=== PATIENT | female | born 1990 | race Caucasian/White ===

== ENCOUNTER 2018-03-11 04:15 | Inpatient (IN) | payer BC ==
[~2018-03-11 04:15] MED LIST: DEXTROSE 5%-LACTATED RINGERS 1,000 ML IV SCH
[2018-03-11 04:57] VITALS: BMI 37.2
[2018-03-11 05:57] LABS: BASO % 0.2 % (0-2.0); EOS % 0.5 % (0-4.5); HEMATOCRIT 36.9 % (32.4-45.2); HEMOGLOBIN 12.6 GM/dL (10.7-15.3); LYMPH % 19.4 % (8-40); MCH 28.8 pg (25.7-33.7); MCHC 34.1 g/dl (32.0-36.0); MEAN CELL VOLUME 84.5 fl (80-96); MEAN PLT VOLUME 10.9 fl (7.5-11.1); MONO % 5.6 % (3.8-10.2); NEUT % 74.3 % (42.8-82.8); PLATELET COUNT 160 K/MM3 (134-434); RBC 4.36 M/mm3 (3.60-5.2); RDW 13.9 % (11.6-15.6); WHITE BLOOD COUNT 13.2 K/mm3 (4.0-10.0)
[2018-03-11] MEDS ORDERED: AMPICILLIN - 2 GM in SODIUM CHLORIDE 100 ML IVPB ONE (06:00)
[2018-03-11] MEDS ORDERED: AMPICILLIN SODIUM 2 GM VIAL ONE (06:04)
[2018-03-11 06:18] LABS: INR 0.96 (0.82-1.09); PROTHROMBIN TIME (PATIENT) 10.9 SEC (9.7-13.0)
[2018-03-11 06:20] LABS: ACTIVATED PTT 24.6 SECONDS (26.9-34.4)
[2018-03-11] MEDS ORDERED: BUTORPHANOL TARTRATE 1 MG/ML VIAL ONE ×2 (06:41)
[2018-03-11] MEDS ORDERED: PROMETHAZINE HCL 25 MG/1 ML VIAL ONE (06:41)
[2018-03-11] MEDS ORDERED: SODIUM CHLORIDE 100 ML IVPB ONE (06:42)
[2018-03-11 06:43] LABS: ALBUMIN 2.5 g/dl (3.4-5.0); ALK PHOS 119 U/L (45-117); ANION GAP 10 (8-16); BILIRUBIN,TOTAL 0.2 mg/dL (0.2-1.0); BLOOD UREA NITROGEN 10 mg/dL (7-18); CALCIUM 8.2 mg/dL (8.5-10.1); CHLORIDE 107 mmol/L (98-107); CO2 24 mmol/L (21-32); CREATININE 0.5 mg/dL (0.55-1.02); GLUCOSE,RANDOM 104 mg/dL (74-106); POTASSIUM 4.3 mmol/L (3.5-5.1); SGOT/AST 13 U/L (15-37); SGPT/ALT 13 U/L (12-78); SODIUM 141 mmol/L (136-145); TOT PROT 6.2 g/dl (6.4-8.2)
[2018-03-11] MEDS ORDERED: PROMETHAZINE HCL 25 MG/1 ML VIAL IVPUSH ONE (06:49)
[2018-03-11] MEDS ORDERED: BUTORPHANOL TARTRATE 1 MG/ML VIAL IVPUSH ONE (06:49)
[2018-03-11] MEDS ORDERED: DEXTROSE 5%-LACTATED RINGERS 1,000 ML IV SCH (07:00)
[2018-03-11] MEDS ORDERED: OXYTOCIN 20 UNITS in 0.9% NS 20 UNIT/1,000 ML INFUS.BAG IV ONE (08:44)
[2018-03-11] MEDS ORDERED: BISACODYL 10 MG SUPP.RECT RC PRN (09:07)
[2018-03-11] MEDS ORDERED: WITCH HAZEL 50% (TUCKS) 40 PAD/JAR PAD TP PRN (09:07)
[2018-03-11] MEDS ORDERED: BENZOCAINE 20% 57 GM BOTTLE TP PRN (09:07)
[2018-03-11] MEDS ORDERED: BENZOCAINE 28 GM HEMORRHOIDAL OINTMENT TP PRN (09:07)
[2018-03-11] MEDS ORDERED: METHYLERGONOVINE MALEATE 0.2 MG/1 ML AMP IM PRN (09:07)
--- NOTE | 2018-03-11 09:07 | PN ---
Delivery - Delivery Type of Anesthesia: None Episiotomy/Laceration: None EBL (cc): 250 ( of living male infantover intact perineum score 88. condition of both mother and are stable.) Delivery, Single - [place] Feeding Plan Initial Plan: Exclusive throughout hospitalization
--- NOTE | 2018-03-11 09:13 | HP ---
Past Medical History - Admission Chief Complaint: onset of labor spontaneous rupture of membranes History of Present Illness: 27 y/o female presented to the labor and delivery c/o of onset of labor with spontaneous rupture of the amniotic mebranes. her antepartum course has been unremarkable. she has a h/o normal spontaneous vaginal delivery, uncomplicated. History Source: Patient Limitations to Obtaining History: No Limitations - Past Medical History FIRST BEATER: No: Alzheimer's, CVA, Dementia, Migraine, Multiple Sclerosis, Peripheral Neuropathy, Parkinson's, Seizure, Syncope, TIA, Vertigo, Other Cardiovascular: No: AFIB, Aneurysm, Aortic Insufficiency, Aortic Stenosis, CAD, CHF, Deep Vein Thrombosis, HTN, Hyperlipdemia, NM, Mitral Insufficiency, Mitral Stenosis, Murmur, Pulmonary Hypertension, Other Pulmonary: No: Asthma, Bronchitis, Cancer, COPD, O2 Dependent, Pneumonia, Previously Intubated, Pulmonary Embolus, Pulmonary Fibrosis, Sleep Apnea, Other Gastrointestinal: No: Ascites, Cancer, Constipation, Crohn's Disease, Diverticulitis, Diverticulosis, Esophageal Varices, Gastritis, GERD, GI Bleed, Hemorrhoids, Hiatal Hernia, Inflamatory Bowel Disease, Irritable Bowel Disease, Pancreatitis, Peptic Ulcer Disease, Ulcerative Colitis, Other Hepatobiliary: No: Cirrhosis, Cholelithiasis, Cholecystitis, Choledocholithiasis , Hepatitis A, Hepatitis B, Hepatitis C, Other Renal/: No: Renal Failure, Renal Inusuff, BPH, Cancer, Hematuria, Hemodialysis , Neurogenic Bladder, Renal Calculi, UTI, Other Reproductive: No: Ectopic , Endometriosis, Fibroids, PID, Polycystic Ovary Syndrome, Postmenopausal, Other ...: 4 ...Para: 1 ...Term: 1 ...: 0 ...Spon : 2 ...Induced : 0 ...Multiple Gestation: 0 ...LMP: 06/26/17 ... Weeks Gestation by Dates: 36.6 ...EDC by Dates: 04/02/18 Heme/Onc: No: Anemia, B12 Deficiency, Bleeding Disorder, Cancer, Current Chemotherapy, Current Radiation Therapy, Hemochromatosis, Hypercoaguable State, Myeloproliferative Synd, Sickle Cell Disease, Sickle Cell Trait, Thrombocytopenia, Other Infectious Disease: No: AIDS, C-Diff, Herpes Zoster, HIV, MRSA, STD's, Tuberculosis, VREF, Other Psych: No: Addictions, Anxiety, Bipolar, Depression, Panic, Psychosis, Schizophrenia, Other Musculoskeletal: No: Bursitis, Chronic low back pain, Hemiparesis, Hemiplegia, Osteoarthritis, Paraplegia, Other Rheumatology: No: Fibromyalgia, Gout, Lupus, Rheumatoid Arthritis, Sarcoidosis, Vasculitis, Other ENT: No: Allergic Rhinitis, Sinusitis, Other Endocrine: No: [place]'s Disease, Omar's Disease, Diabetes Insipidus, Diabetes Mellitus, Hyperparathyroidism, Hyperthyroidism, Hypothyroidism, Osteopenia, SIADH, Other Dermatology: No: Basal Cell, Cellulitis, Eczema, Melanoma, Psoriasis, Squamous Cell, 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 - Past Surgical History Past Surgical History: Yes: None Hx Myomectomy: No Hx Transabdominal Cerclage: No - Smoking History Smoking history: Never smoked Have you smoked in the past 12 months: No If you are a former smoker, when did you quit?: 08/2014 - Alcohol/Substance Use Hx Alcohol Use: No - Social History History of Recent Travel: No Home Medications - Allergies Allergies/Adverse Reactions: Allergies Allergy/AdvReac Type Severity Reaction Status Date / Time No Known Allergies Allergy Verified 06/17/15 18:33 - Home Medications Home Medications: Ambulatory Orders Vit/Iron Fumarate/FA [ Tablet] 1 tab PO DAILY 06/17/15 Family Disease History - Family Disease History Family History: Unremarkable Review of Systems - Review of Systems Constitutional: denies: No Symptoms, Chills, Diaphoresis, Fever, Lethargy, Loss of Appetite, Malaise, Night Sweats, Unintentional Wgt. Loss, Weakness, Other Eyes: denies: No Symptoms, Blind Spots, Blurred Vision, Double Vision, Eye Pain , Floaters, Photophobia, Recent Change in Vision, Other HENT: denies: No Symptoms, Difficult Swallowing, Ear Discharge, Ear Pain, Epistaxis, Gingival Bleeding, Hearing Loss, Mouth Swelling, Nasal Congestion, Ocular Prosthesis, Throat Pain, Toothache, Ringing in Ears, Other Neck: denies: No Symptoms, Decreased ROM, Lumps, Pain on Movement, Stiffness, Swollen Glands, Tenderness, Other Respiratory: denies: No Symptoms, Cough, Exercise Intolerance, Hemoptysis, Orthopnea, PND, Snoring, SOB, SOB on Exertion, Wheezing, Other Genitourinary: denies: No Symptoms, Burning, Discharge, Dysuria, Flank Pain, Frequency, Hematuria, Incontinence, Lesions, Menses, Pain, Testicular Mass, Testicular Pain, Testicular Swelling, Urgency, Vaginal Bleeding, Other Breasts: denies: No Symptoms Reported, See HPI, Breast Implants, Discharge from Nipple, Lumps, Pain, Skin Changes, Other Musculoskeletal: denies: No Symptoms, Back Pain, Crepitus, Decreased ROM, Extremity Pain, Joint Pain, Joint Swelling, Muscle Pain, Muscle Cramps, Muscle Weakness, Other Integumentary: denies: No Symptoms, Blister, Bruising, Change in Color, Eczema, Erythema, Incision, Lesions, Lump, Pallor, Pruritis, Rash, Wound, Other Neurological: denies: No Symptoms, Change in LOC, Change in Speech, Confusion, Dizziness, Headache, Incoordination, Numbness, Parasthesia, Pre-Existing Deficit , Seizure, Syncope, Tremors, Unsteady Gait, Weakness, Other Endocrine: denies: No Symptoms, Excessive Sweating, Flushing, Increased Hunger, Increased Thirst, Intolerance to Cold, Intolerance to Heat, Unexplained Weight Gain, Unexplained Weight Loss, Other Hematology/Lymphatic: denies: No Symptoms, Easily Bruised, Excessive Bleeding, Swollen Glands, Other Psychiatric: denies: No Symptoms, Altered Sleep Pattern, Anxiety, Depression, Hallucinations, Panic, Paranoia, Suicidal, Other Physical Exam - Maternity Vital Signs: Vital Signs Temperature 98.2 F 03/11/18 08:00 Pulse Rate 94 H 03/11/18 08:00 Respiratory Rate 20 03/11/18 08:00 Blood Pressure 136/83 03/11/18 08:00 O2 Sat by Pulse Oximetry (%) Constitutional: Yes: Well Nourished, No Distress, Calm Eyes: Yes: WNL, Conjunctiva Clear HENT: Yes: WNL, Atraumatic, Normocephalic Neck: Yes: WNL, Supple, Trachea Midline Cardiovascular: Yes: WNL, Regular Rate and Rhythm Lungs: Clear to auscultation Breast(s): Yes: WNL - Abdominal Exam/OB Number of Fetuses: Single Presentation: Vertex Contractions: Yes Regularity: Regular Intensity: Moderate Monitor Mode: External Heart Rate (range): 140bpm Heart Rate Location: [facility] Category: I Accelerations: Uniform Decelerations: None - Vaginal Exam/OB Vaginal Bleediing: Yes, Light Speculum Exam: No Dilatation (cm): 5cm Effacement (%): 90% Amniotic Membrane Status: Ruptured Amniotic Fluid: Yes: Clear Presentation: Vertex/Position Station: -1 - Physical Exam Musculoskeletal: Yes: WNL Extremities: Yes: WNL Edema: No Integumentary: Yes: WNL Deep Tendon Reflex Grade: Normal +2 ...Motor Strength: WNL Psychiatric: Yes: WNL - Labs Lab Results: CBC, BMP 03/11/18 05:40 03/11/18 05:40 Assessment/Plan iup at 36 weeks in labor assist with l.d pain management as needed by the patient
[2018-03-11] MEDS ORDERED: OXYTOCIN 20 UNITS in 0.9% NS 20 UNIT/1,000 ML INFUS.BAG IV SCH (09:15)
[2018-03-11] MEDS ORDERED: AMPICILLIN - 1 GM in SODIUM CHLORIDE 100 ML IVPB SCH (10:00)
[2018-03-11] MEDS: IBUPROFEN 600 MG TABLET (FP) PO PRN ×2 (13:04→20:41)
[2018-03-11] MEDS: ACETAMINOPHEN 325 MG TABLET (FP) PO PRN ×2 (13:05→20:43)
[2018-03-11 13:51] LABS: URINE APPEARANCE SLCLOUDY; URINE BILIRUBIN NEGATIVE (<2.0 mg/dL); URINE COLOR YELLOW; URINE GLUCOSE (UA) 3+ (NEGATIVE); URINE KETONE 1+ (NEGATIVE); URINE LEUK ESTERASE NEGATIVE (NEGATIVE); URINE NITRITE NEGATIVE (NEGATIVE); URINE UROBILINOGEN NEGATIVE mg/dL (0.2-1.0)
[2018-03-11 13:53] LABS: URINE PROTEIN 1+ (NEGATIVE)
[2018-03-11 13:54] LABS: EPI CELLS RARE /HPF (FEW); URINE MUCUS FEW
[2018-03-12 07:45] LABS: BASO % 0.3 % (0-2.0); EOS % 0.3 % (0-4.5); HEMATOCRIT 31.3 % (32.4-45.2); HEMOGLOBIN 10.5 GM/dL (10.7-15.3); LYMPH % 18.5 % (8-40); MCH 28.6 pg (25.7-33.7); MCHC 33.7 g/dl (32.0-36.0); MEAN CELL VOLUME 84.7 fl (80-96); MEAN PLT VOLUME 10.3 fl (7.5-11.1); MONO % 4.5 % (3.8-10.2); NEUT % 76.4 % (42.8-82.8); PLATELET COUNT 154 K/MM3 (134-434); RBC 3.69 M/mm3 (3.60-5.2); RDW 14.3 % (11.6-15.6); WHITE BLOOD COUNT 13.7 K/mm3 (4.0-10.0)
[2018-03-12] MEDS: ONDANSETRON 4 MG TABLET PO PRN ×3 (09:00→21:26)
--- NOTE | 2018-03-12 09:34 | PN ---
Post Note - Post Date of Delivery: 03/11/18 Post Day: 1 Vital Signs: Vital Signs - 24 hr 03/11/18 03/11/18 03/11/18 09:45 10:39 14:00 Temperature 98.2 F 98.2 F 98.2 F Pulse Rate 78 82 97 H Respiratory 20 20 20 Rate Blood Pressure 116/69 116/62 112/51 O2 Sat by Pulse 100 Oximetry (%) 03/11/18 03/11/18 03/12/18 17:59 22:00 02:00 Temperature 98.4 F 98.1 F 97.9 F Pulse Rate 104 H 100 H 90 Respiratory 20 18 18 Rate Blood Pressure 112/51 117/75 124/68 O2 Sat by Pulse Oximetry (%) 03/12/18 06:00 Temperature 98.5 F Pulse Rate 97 H Respiratory 18 Rate Blood Pressure 126/71 O2 Sat by Pulse Oximetry (%) Labs: Laboratory Results - last 24 hr 03/11/18 03/12/18 10:10 07:15 WBC 13.7 H RBC 3.69 Hgb 10.5 L D Hct 31.3 L D MCV 84.7 MCH 28.6 MCHC 33.7 RDW 14.3 Plt Count 154 MPV 10.3 Neutrophils % 76.4 Lymphocytes % 18.5 Monocytes % 4.5 Eosinophils % 0.3 Basophils % 0.3 Urine Color Yellow Urine Appearance Slcloudy Urine pH 5.0 Ur Specific [place] 1.032 Urine Protein 1+ H Urine Glucose (UA) 3+ H Urine Ketones 1+ H Urine Blood 3+ H Urine Nitrite Negative Urine Bilirubin Negative Urine Urobilinogen Negative Ur Leukocyte Esterase Negative Urine WBC (Auto) 5 Urine RBC (Auto) 761 Ur Epithelial Cells Rare Urine Mucus Few - Subjective Subjective: Other (Nausea and vomiting) - Objective Afebrile: Yes Breast: Not engorged Abdomen: Soft, Non-tender Uterus: Fundus firm Vagina: Scant lochia Extremities: Non-tender - Assessment/Plan (1) (normal spontaneous vaginal delivery) Assessment: S/P Normal , Other (nausea and vomiting) Plan: Routine Care, Other (Zofran PRN)
[2018-03-12] MEDS ORDERED: DIPHTH,PERTUSS(ACELL),TET 0.5 ML DISP.SYRIN IM ONE (10:00)
[2018-03-12 14:12] LABS: HBsAG SCREEN Negative (Negative)
[2018-03-12] MEDS ORDERED: SENNOSIDES/DOCUSATE COMBO (SENNA PLUS) TABLET (UD) PO PRN (22:00)
--- NOTE | 2018-03-13 10:17 | PN ---
Post Progress Note - Subjective Subjective: Pt seen/evaluated. Feeling nauseated. States she is unable to tolerate meals. Has emesis after each meal. Ate breakfast this a.m., no emesis yet but feels as though she may regurgitate food. Denies CP/SOB/F/C/DEL CID. Had BM yesterday, voiding. Breast feeding. Type of Delivery: Vital Signs: Vital Signs Temperature 98.7 F 03/12/18 21:13 Pulse Rate 84 03/12/18 21:13 Respiratory Rate 20 03/12/18 21:13 Blood Pressure 127/72 03/12/18 21:13 O2 Sat by Pulse Oximetry (%) 100 03/11/18 09:45 Breast Exam: Yes: Soft Uterus: Yes: Fundus Firm, Fundus below umbilicus Abdomen/GI: Yes: Abdomen soft. No: Abdominal Distention, Tender, Tolerating PO Lochia: Yes: Rubra Lochia, amount: Small Extremities: Yes: Calves non-tender Activity: Ambulating - Labs Labs: CBC WBC 13.7 K/mm3 (4.0-10.0) H 03/12/18 07:15 RBC 3.69 M/mm3 (3.60-5.2) 03/12/18 07:15 Hgb 10.5 GM/dL (10.7-15.3) L D 03/12/18 07:15 Hct 31.3 % (32.4-45.2) L D 03/12/18 07:15 MCV 84.7 fl (80-96) 03/12/18 07:15 MCH 28.6 pg (25.7-33.7) 03/12/18 07:15 MCHC 33.7 g/dl (32.0-36.0) 03/12/18 07:15 RDW 14.3 % (11.6-15.6) 03/12/18 07:15 Plt Count 154 K/MM3 (134-434) 03/12/18 07:15 MPV 10.3 fl (7.5-11.1) 03/12/18 07:15 Neutrophils % 76.4 % (42.8-82.8) 03/12/18 07:15 Lymphocytes % 18.5 % (8-40) 03/12/18 07:15 Monocytes % 4.5 % (3.8-10.2) 03/12/18 07:15 Eosinophils % 0.3 % (0-4.5) 03/12/18 07:15 Basophils % 0.3 % (0-2.0) 03/12/18 07:15 Problem List - Problems (1) (normal spontaneous vaginal delivery) Code(s): O80 - ENCOUNTER FOR FULL-TERM UNCOMPLICATED DELIVERY (2) Nausea & vomiting Code(s): R11.2 - NAUSEA WITH VOMITING, UNSPECIFIED Assessment/Plan 27 y/o PPD#2 s/p normal with nausea/vomiting will check labs if able to tolerate some PO and labs stable (r/o acute process such as cholecystitis etc) to consider discharge home later
[2018-03-13 10:43] LABS: BASO % 0.4 % (0-2.0); EOS % 0.5 % (0-4.5); HEMATOCRIT 33.6 % (32.4-45.2); HEMOGLOBIN 11.2 GM/dL (10.7-15.3); LYMPH % 23.1 % (8-40); MCHC 33.3 g/dl (32.0-36.0); MEAN CELL VOLUME 84.2 fl (80-96); MEAN PLT VOLUME 9.8 fl (7.5-11.1); PLATELET COUNT 211 K/MM3 (134-434); RBC 3.99 M/mm3 (3.60-5.2); RDW 14.4 % (11.6-15.6); WHITE BLOOD COUNT 10.6 K/mm3 (4.0-10.0)
[2018-03-13 11:09] LABS: ALBUMIN 2.3 g/dl (3.4-5.0); ALK PHOS 90 U/L (45-117); ANION GAP 7 (8-16); BILIRUBIN,TOTAL 0.3 mg/dL (0.2-1.0); BLOOD UREA NITROGEN 6 mg/dL (7-18); CALCIUM 8.5 mg/dL (8.5-10.1); CHLORIDE 105 mmol/L (98-107); CO2 29 mmol/L (21-32); CREATININE 0.7 mg/dL (0.55-1.02); GLUCOSE,RANDOM 75 mg/dL (74-106); POTASSIUM 3.9 mmol/L (3.5-5.1); SGOT/AST 13 U/L (15-37); SGPT/ALT 13 U/L (12-78); SODIUM 141 mmol/L (136-145); TOT PROT 5.7 g/dl (6.4-8.2)
[2018-03-13] MEDS ORDERED: diphenhydrAMINE HCL 25 MG CAPSULE (FP) PO PRN (18:09)
[2018-03-13] MEDS ORDERED: MAG HYDROX/AL HYDROX/SIMETH 30 ML UNIT-DOSE CUP PO PRN (18:09)
--- NOTE | 2018-03-13 18:10 | CON.GI ---
Consult Consult Specialty:: GI Referred by:: Dr Byrd Reason for Consultation:: nausea and vomiting after delivery - History of Present Illness History of Present Illness: 27 y/o female had recurrent episodes of nausea and vomiting asociated with mild epigastric pain after delivery . She was given Ibuprofen. She is breast feeding. She denies constipation, diarrhea, me;pipo and rectal bleeding. - Past Medical History DIRECTOR SPEECH LANGUAGE: No: Alzheimer's, CVA, Dementia, Migraine, Multiple Sclerosis, Peripheral Neuropathy, Parkinson's, Seizure, Syncope, TIA, Vertigo, Other Cardio/Vascular: No: AFIB, Aneurysm, Aortic Insufficiency, Aortic Stenosis, CAD , CHF, Deep Vein Thrombosis, HTN, Hyperlipdemia, IA, Mitral Insufficiency, Mitral Stenosis, Murmur, Pulmonary Hypertension, Other Pulmonary: No: Asthma, Bronchitis, Cancer, COPD, O2 Dependent, Pneumonia, Previously Intubated, Pulmonary Embolus, Pulmonary Fibrosis, Sleep Apnea, Other Gastrointestinal: No: Ascites, Cancer, Constipation, Crohn's Disease, Diverticulitis, Diverticulosis, Esophageal Varices, Gastritis, GERD, GI Bleed, Hemorrhoids, Hiatal Hernia, Inflamatory Bowel Disease, Irritable Bowel Disease, Pancreatitis, Peptic Ulcer Disease, Ulcerative Colitis, Other Hepatobiliary: No: Cirrhosis, Cholelithiasis, Cholecystitis, Choledocholithiasis , Hepatitis A, Hepatitis B, Hepatitis C, Other Renal/: No: Renal Failure, Renal Inusuff, BPH, Cancer, Hematuria, Hemodialysis , Neurogenic Bladder, Renal Calculi, UTI, Other Infectious Disease: No: AIDS, C-Diff, Herpes Zoster, HIV, MRSA, STD's, Tuberculosis, VREF, Other Psych: No: Addictions, Anxiety, Bipolar, Depression, Panic, Psychosis, Schizophrenia, Other Musculoskeletal: No: Bursitis, Chronic low back pain, Hemiparesis, Hemiplegia, Osteoarthritis, Paraplegia, Other Rheumatology: No: Fibromyalgia, Gout, Lupus, Rheumatoid Arthritis, Sarcoidosis, Vasculitis, Other ENT: No: Allergic Rhinitis, Sinusitis, Other Endocrine: No: Josh's Disease, Omar's Disease, Diabetes Insipidus, Diabetes Mellitus, Hyperparathyroidism, Hyperthyroidism, Hypothyroidism, Osteopenia, SIADH, Other Dermatology: No: Basal Cell, Cellulitis, Eczema, Melanoma, Psoriasis, Squamous Cell, 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 - Past Surgical History Past Surgical History: Yes: None - Alcohol/Substance Use Hx Alcohol Use: No - Smoking History Smoking history: Never smoked Have you smoked in the past 12 months: No If you are a former smoker, when did you quit?: 08/2014 - Social History History of Recent Travel: No Home Medications - Allergies Allergies/Adverse Reactions: Allergies Allergy/AdvReac Type Severity Reaction Status Date / Time No Known Allergies Allergy Verified 06/17/15 18:33 - Home Medications Home Medications: Ambulatory Orders Vit/Iron Fumarate/FA [ Tablet] 1 tab PO DAILY 06/17/15 Physical Exam-GI Vital Signs: Vital Signs Temperature 98.7 F 03/13/18 16:51 Pulse Rate 81 03/13/18 16:51 Respiratory Rate 20 03/13/18 16:51 Blood Pressure 111/72 03/13/18 16:51 O2 Sat by Pulse Oximetry (%) 100 03/11/18 09:45 Constitutional: Yes: Well Nourished Eyes: Yes: Conjunctiva Clear HENT: Yes: Atraumatic Neck: Yes: Supple Cardiovascular: Yes: Regular Rate and Rhythm Respiratory: Yes: CTA Bilaterally ...Palpate: Yes: Soft, Tenderness, Epigastium. No: Firm/Rigid, Guarding, Hepatomegaly, Mass, Pulsatile Mass, Splenomegaly, Tenderness Labs: CBC, BMP 03/13/18 10:20 03/13/18 10:20 INR, PTT INR 0.96 (0.82-1.09) 03/11/18 05:40 Problem List - Problems (1) Nausea & vomiting Assessment/Plan: r/o dyspepsia R> because of brest feeding limited medications are available Mylanta 30cc every 6 hours prn 'Benadryl 25mg at berd time if no improvment may give zofran but also it is also unknown if this will be present in breast milk Code(s): R11.2 - NAUSEA WITH VOMITING, UNSPECIFIED
[2018-03-13] MEDS: ONDANSETRON 4 MG TABLET PO PRN (19:52)
[2018-03-13] MEDS ORDERED: ONDANSETRON 4 MG TABLET PO STA (20:22)
[2018-03-14] MEDS: ONDANSETRON 4 MG TABLET PO SCH ×3 (00:43→11:25)
[2018-03-14 08:40] VITALS: BP 108/68; PULSE 84; TEMP 98.4
--- NOTE | 2018-03-14 10:25 | DS ---
Physical Exam-TRANSITION OF CARE SPECIALIST Vital Signs: Vital Signs Temperature 98.4 F 03/14/18 08:37 Pulse Rate 84 03/14/18 08:37 Respiratory Rate 20 03/14/18 08:37 Blood Pressure 108/68 03/14/18 08:37 O2 Sat by Pulse Oximetry (%) 100 03/11/18 09:45 Constitutional: Yes: Well Nourished, No Distress Gastrointestinal: Yes: WNL, Normal Bowel Sounds, Soft ....Post : Yes: Uterus firm, Uterus non-tender Integumentary: Yes: WNL Labs: CBC, BMP 03/13/18 10:20 03/13/18 10:20 Delivery - Delivery Type of Anesthesia: None Episiotomy/Laceration: None EBL (cc): 250 Delivery, Single - Stages of Labor Date 1st Stage Initiatied: 03/11/18 Time 1st Stage Initiated: 03:00 Date 2nd Stage Initiated: 03/11/18 Time 2nd Stage Initiated: 08:45 Date of Delivery: 03/11/18 Time of Delivery: 08:51 Time Placenta Delivered: 08:55 - Condition of Infant Associate Store Director/Sql Report Writer Present: No Infant Gender: Male Weight: 7 lb 9 oz Position: Left, OA Total Hours ROM (Hrs/Mins): 6hrs 21min - 1 Minute Total Score: 8 5 Minutes Total Score: 8 - Feeding Plan Initial Plan: Exclusive throughout hospitalization Discharge Summary Reason For Visit: LABOR Current Active Problems (normal spontaneous vaginal delivery) (Acute) Nausea & vomiting (Acute) Procedures: Principal: Normal vaginal delivery Hospital Course: remarkable for nausea and vomiting Condition: Good - Instructions Diet, Activity, Other Instructions: Physical activity Resume your normal everyday activity as tolerated no heavy lifting or exercise until seen by your surgeon. You may walk unlimited ese of and climb stairs. You may resume driving the car when you feel safe and comfortable behind the wheel. No sexual activity as instructed. Wound care If you have a bandage, leave it on, and keep dry for 48-72 hours. After that time discard the outer bandage. If they are tapes on the skin under the out of bandage leave them in place. They will peel off in the next 7 to 10 days. Do Not Peel them off. You may shower the day after surgery. If there are tapes present on the skin, you may shower over them. Diet There are no dietary restrictions. Eat healthy, high-fiber foods. Drink 6 to 8 glasses of liquid each day. This will assist in keeping your bowels are regular. Pain management You may take Tylenol or acetaminophen or Ibuprofen (for example, Motrin, Advil etc.) from my pain prescription medication is ordered should be taken as prescribed for moderate to severe pain. Call MD for any of the following: Severe pain not relieved by medication Fever of 101 or higher Excessive bleeding or drainage on dressing Inability to urinate Referrals: Latanya Byrd MD [Staff Physician] - Eron Gerard MD [Staff Physician] - Disposition: HOME - Home Medications Comprehensive Discharge Medication List: Ambulatory Orders Vit/Iron Fumarate/FA [ Tablet] 1 tab PO DAILY 06/17/15 Ondansetron HCl [Zofran] 4 mg PO TID 30 Days #30 tablet 03/14/18
== END 2018-03-14 12:00 | disposition home or self-care (01) | DRG 774 ==
LOC: JLDR 04:15 → J3W 10:36
PROVIDERS: ADMIT Obstetrics & Gynecology; ATTEND Obstetrics & Gynecology
PROC: 10E0XZZ Delivery of Products of Conception, External Approach (ICD-10-PCS; principal; 2018-03-11)
DX: O90.89 Other complications of the puerperium, not elsewhere classified (principal); R11.2 Nausea with vomiting, unspecified; Z3A.36 36 weeks gestation of pregnancy; Z37.0 Single live birth
CPT/HCPCS: 36415; 59409; 71046-TC-FY; 80053; 81003; 81015; 85025; 85610; 85730; 86593; 86762; 86900; 87340; 87389; 90715